=== PATIENT | female | born 1975 | race Hispanic/Latino ===

== ENCOUNTER 2016-11-25 19:26 | Emergency (ER) | payer MEDICAID, OTHER ==
[2016-11-25 19:26] VITALS: BMI 20.1
[2016-11-25 19:35] VITALS: BP 115/62; PULSE 99; RESP 16; TEMP 99; O2SAT 97
[2016-11-25] MEDS ORDERED: Amoxicillin-Clav 875-125 mg Tab PO STA (20:13)
[2016-11-25] MEDS ORDERED: TDAP Vaccine 0.5 mL Syr IM ONE (20:15)
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
== END 2016-11-25 21:22 | disposition home or self-care (01) ==
LOC: H.ER 19:26
DX: L02.31 Cutaneous abscess of buttock (principal); F14.10 Cocaine abuse, uncomplicated
CPT/HCPCS: 90471; 90715; 96372; 99281; J1885